=== PATIENT | male | born 1995 | race Caucasian/White ===

== ENCOUNTER 2017-02-23 19:49 | Emergency (ER) | payer SELFPAY ==
[~2017-02-23] VITALS: Ht 172.7 cm; Wt 64.9 kg
[2017-02-23] MEDS ORDERED: FLEXERIL10 MG PO (21:36)
[2017-02-23] MEDS ORDERED: NAPROSYN500 MG PO (21:36)
[2017-02-23 22:01] VITALS: BP 124/82
== END 2017-02-23 22:17 | disposition home or self-care (01) ==
LOC: EME 19:49
DX: M54.16 Radiculopathy, lumbar region (principal); F17.200 Nicotine dependence, unspecified, uncomplicated
CPT/HCPCS: 99281; 99283; J1100